=== PATIENT | female | born 1940 | race Caucasian/White ===

== ENCOUNTER 2017-03-18 13:34 | Day surgery (SDC) | payer MEDICARE ==
[~2017-03-18] VITALS: Ht 165.1 cm; Wt 54.0 kg
[~2017-03-18 13:34] MED LIST: 0.9% Sodium Chloride 1,000 ML IV SCH; ASCO500C6 PO; CALC-714 PO; CHOL400T PO; ESTR42.52 VG; GLUT500T8 PO; MELA1TAB16 PO; MULT1CAP33 PO; Sodium Chloride LOK Flush 10 mL Syringe IV PRN; UBID1CAP52 PO; [UNRECOGNIZED DRUG - OTHER]; fentaNYL-PF 50 mCg/mL 2 mL Inj IVPUSH PRN
[2017-03-18 13:50] VITALS: BP 138/77; PULSE 73; RESP 14; O2SAT 100
[2017-03-18 14:56] VITALS: BP 106/52; PULSE 69; RESP 14; O2SAT 93
[2017-03-18 15:06] VITALS: BP 106/52; PULSE 70; RESP 16; O2SAT 95
[2017-03-18 15:16] VITALS: BP 131/59; PULSE 75; RESP 16; O2SAT 93
--- NOTE | 2017-03-19 00:07 | ENDO ---
[address] [address] ENDOSCOPY PROCEDURE PATIENT: LILIAN CARNES : 1940 MR#: [id number] ADMIT: 03/18/2017 JOB ID: [id number] PROCEDURE: Colonoscopy. INDICATION: Alternating constipation and diarrhea. Patient's ASA classification is two. Mallampati score is two. MEDICATIONS: Versed 5 mg, fentanyl 100 mcg. INSTRUMENT USED: PCF- H180 AL. PREP QUALITY: Good. PROCEDURE DETAILS: After informed consent was obtained, the patient was brought to the GI suite, where she was placed on oxygen via nasal cannula and monitored with continuous pulse oximeter, telemetry, and blood pressure monitoring. A time-out was performed. Then, she was placed in the left lateral decubitus position and medications were administered for sedation. The digital rectal exam was performed, was unremarkable. The colonoscope was then inserted into the rectum and advanced to approximately 30 cm. At this point, there was what appeared to be significant diverticulosis as well as an acute angulation. As we attempted to advance beyond this portion, patient had pain and asked for us to stop. At this point, further sedation was given and then we attempted again and patient stated that she was having pain. At this point, the procedure was aborted, the colonoscope was withdrawn. Examined portions of the rectum and sigmoid colon appeared unremarkable. IMPRESSION: Incomplete colonoscopy. RECOMMENDATIONS: Repeat colonoscopy with Anesthesia assistance. Anesthesiologist was currently not available for rescue sedation and, therefore, we will have to reschedule exam at a later date. COMPLICATIONS: None. ESTIMATED BLOOD LOSS: Zero.
== END 2017-03-18 23:59 | disposition home or self-care (01) ==
LOC: END 13:34
PROVIDERS: ATTEND Internal Medicine Gastroenterology
DX: R10.30 Lower abdominal pain, unspecified (principal); Z53.09 Procedure and treatment not carried out because of other contraindication; K57.30 Diverticulosis of large intestine without perforation or abscess without bleeding; R19.7 Diarrhea, unspecified; K59.00 Constipation, unspecified
CPT/HCPCS: 45378; G0500; J7030